=== PATIENT | female | born 1950 | race American Indian/Alaskan Native ===

== ENCOUNTER 2016-10-10 21:02 | Observation (INO) | payer SELFPAY ==
[2016-10-10 21:26] LABS: Hematocrit 35.2 % (30.3-42.9); Hemoglobin 11.8 gm/dl (10.1-14.3); Mean Corpuscular HGB Conc 33 % (30-34); Mean Corpuscular Hemoglobin 31 pg (28-32); Mean Corpuscular Volume 94 fl (79-97); Platelet Count 191 K/mm3 (140-440); Red Blood Count 3.74 M/mm3 (3.65-5.03); Red Cell Distribution Width 13.5 % (13.2-15.2); White Blood Count 10.3 K/mm3 (4.5-11.0)
[2016-10-10 22:33] LABS: Blastocytes % (Manual) 0 %
[2016-10-10 22:34] LABS: Basophils % (Manual) 0 % (0.0-1.8); Eosinophils % (Manual) 0 % (0.0-4.3)
[2016-10-10 22:35] LABS: Anisocytosis 1+
[2016-10-10 22:36] LABS: Diff Status Complete; Platelet Estimate Consistent w Auto
[2016-10-10 22:59] LABS: Anion Gap 22 mmol/L; BUN/Creatinine Ratio 17.14; Blood Urea Nitrogen 12 mg/dL (7-17); Calcium 9.4 mg/dL (8.4-10.2); Carbon Dioxide 22 mmol/L (22-30); Chloride 103.5 mmol/L (98-107); Glucose 114 mg/dL (65-100); Potassium 3.4 mmol/L (3.6-5.0); Sodium 144 mmol/L (137-145)
--- NOTE | 2016-10-10 23:34 | Emergency Department Report ---
ED Chest Pain HPI - General Chief Complaint: Chest Pain Stated Complaint: CHEST PAIN Time Seen by Provider: 10/10/16 23:29 Source: patient, EMS Mode of arrival: Stretcher Limitations: No Limitations - History of Present Illness Initial Comments: Patient is a 66-year-old female with history of hypertension presenting today because of left-sided chest pain. Patient states that the pain started about one week ago she describes it as a left-sided chest discomfort associated with palpitations, shortness of breath, nausea without vomiting and diaphoresis. Patient states that she normally takes her blood pressure medication but ran out about 2 weeks ago and has not had it refilled. She is a tobacco smoker. She's never had a cardiac workup with no prior stress test or cardiac catheterization. According to triage patient did have a heart rate of 140 initially and a BP of 200/60 with EMS, although no clear documentation of atrial fibrillation or atrial flutter here, her nurse and the patient was in atrial fibrillation with EMS. Severity scale (0 -10): 2 - Related Data Previous Rx's Medication Instructions Recorded Last Taken Type Aspirin EC [Aspirin Enteric Coated 325 mg PO QDAY #30 tablet 10/12/16 Unknown Rx TAB] Pantoprazole [Protonix] 40 mg PO QDAY #30 tablet 10/12/16 Unknown Rx oxyCODONE /ACETAMINOPHEN [Percocet 1 tab PO Q6H PRN #15 tablet 10/12/16 Unknown Rx 5/325 mg] Allergies Allergy/AdvReac Type Severity Reaction Status Date / Time No Known Allergies Allergy Verified 10/10/16 21:11 BRETT score - Brett Score Age > 65: (0) No Aspirin use within the Past 7 Days: (0) No 3 or more CAD Risk Factors: (1) Yes 2 or more Angina events in past 24 hrs: (1) Yes Known CAD with more than 50% Stenosis: (0) No Elevated Cardiac Markers: (0) No ST Deviation Greater than 0.5mm: (0) No BRETT Score: 2 ED Review of Systems ROS: Stated complaint: CHEST PAIN Other details as noted in HPI Comment: All other systems reviewed and negative Constitutional: denies: chills, fever Eyes: denies: eye pain ENT: denies: throat pain Respiratory: denies: cough Cardiovascular: chest pain, palpitations Gastrointestinal: nausea. denies: abdominal pain Genitourinary: denies: urgency, dysuria Skin: denies: rash Psychiatric: denies: anxiety ED Past Medical Hx - Past Medical History Previous Medical History?: Yes Hx Hypertension: Yes Additional medical history: afib - Surgical History Hx Cholecystectomy: Yes - Social History Smoking Status: Never Smoker Substance Use Type: None - Medications Home Medications: Home Medications Medication Instructions Recorded Confirmed Last Taken Type Aspirin EC [Aspirin Enteric Coated 325 mg PO QDAY #30 tablet 10/12/16 Unknown Rx TAB] Pantoprazole [Protonix] 40 mg PO QDAY #30 tablet 10/12/16 Unknown Rx oxyCODONE /ACETAMINOPHEN [Percocet 1 tab PO Q6H PRN #15 tablet 10/12/16 Unknown Rx 5/325 mg] ED Physical Exam - General Limitations: No Limitations General appearance: alert, in no apparent distress - Respiratory Respiratory exam: Present: normal lung sounds bilaterally. Absent: respiratory distress - Cardiovascular Cardiovascular Exam: Present: regular rate, normal rhythm - GI/Abdominal GI/Abdominal exam: Present: soft. Absent: distended, tenderness, guarding - Back Exam Back exam: Present: normal inspection - Neurological Exam Neurological exam: Present: alert, oriented X3. Absent: motor sensory deficit - Psychiatric Psychiatric exam: Present: normal affect - Skin Skin exam: Present: intact ED Course Vital Signs 10/10/16 10/10/16 10/11/16 21:07 22:25 08:00 Temperature 98.7 F 98.5 F Pulse Rate 87 84 69 Pulse Rate [ From Monitor] Respiratory 18 16 15 Rate Blood Pressure 145/79 Blood Pressure 144/70 154/67 [Left] O2 Sat by Pulse 97 99 Oximetry 10/11/16 10/11/16 10/11/16 09:00 11:00 13:33 Temperature Pulse Rate 60 65 62 Pulse Rate [ 62 From Monitor] Respiratory 14 16 16 Rate Blood Pressure Blood Pressure 141/66 138/64 140/64 [Left] O2 Sat by Pulse 99 100 100 Oximetry ED Medical Decision Making - Lab Data Result diagrams: 10/10/16 21:16 10/10/16 21:16 - Medical Decision Making IV, labs, ekg, cxr EKG shows normal sinus rhythm at a rate of 88, no ST-T changes, normal axis Chest x-ray unremarkable, troponin negative, admitted for rule out ACS Critical care attestation.: If time is entered above; I have spent that time in minutes in the direct care of this critically ill patient, excluding procedure time. ED Disposition Clinical Impression: Chest pain Qualifiers: Chest pain type: unspecified Qualified Code(s): R07.9 - Chest pain, unspecified Disposition: OP ADMITTED IP TO THIS HOSP Is pt being admited?: Yes Does the pt Need Aspirin: No Condition: Stable
[2016-10-10] MEDS ORDERED: ZOFRAN IV ONE (23:46)
[2016-10-11] MEDS ORDERED: ZOFRAN ONE (05:35)
--- NOTE | 2016-10-11 07:33 | Admit Criteria Form ---
<JEIMY DAY - Last Filed: 10/11/16 08:01> Admission Criteria Documentation: CARDIOLOGY GRG Clinical Indications for Admission to Inpatient Care ( Place 'X' for any and all applicable criteria): Hospital admission is needed for appropriate care of the patient because of ANY ONE of the following (1): [ ] I. Hemodynamic instability as indicated by ALL of the following (1)(2)(3) (4)(5) [ ]a) Vital signs or other findings not as expected for chronic patient condition or baseline [ ]b) Instability indicated by ANY ONE of the following: [ ]i) Hypotension [ ]ii) Symptomatic Tachycardia unresponsive to treatment ( e.g., analgesia, fluids, sedation as indicated) [ ]iii) Inadequate perfusion indicated by ANY ONE of the following: [ ] 1) Lactic acidosis (> 2 mmol/L) [ ] 2) New abnormal capillary refill (> 3 seconds) [ ] 3) Reduced urine output [ ] 4) New altered mental status [ ]iv) Orthostatic vital sign changes unresponsive to treatment (e.g., fluids) [ ]v) IV inotropic or vasopressor medication required to maintain adequate blood pressure or perfusion [ ] II. Severe heart failure as indicated by ANY ONE of the following(17)(18) [ ]a) Respiratory distress [ ]b) Hypotension [ ]c) Anasarca (refractory to outpatient therapy) [ ]d) Cardiac arrhythmias of immediate concern [ ]e) Myocardial ischemia [ ] III. Cardiac arrhythmias or findings of immediate concern indicated by ANY ONE of the following (19)(20): [ ] a) Heart rhythms that are inherently dangerous or unstable indicated by ANY ONE of the following (21)(22)(23): [ ] i) Resuscitated ventricular fibrillation or cardiac arrest [ ] ii) Ventricular escape rhythm [ ] iii) Sustained ventricular tachycardia (30 seconds or more of ventricular rhythm at greater than 100 beats per minute) [ ] iv) Nonsustained ventricular tachycardia and ANY ONE of the following: [ ] 1) Suspected cardiac ischemia as cause or consequence of ventricular tachycardia [ ] 2) In setting of acute myocarditis [ ] b) Unstable cardiac conduction defects indicated by ANY ONE of the following(23)(24)(25) [ ] i) Type II second-degree atrioventricular block [ ]ii) Third-degree atrioventricular block [ ]iii) New-onset left bundle branch block with suspected myocardial ischemia [ ]c) Any heart rhythm and ANY ONE of the following (21)(22)(26)(27) (28) [ ] i) Continuous long-term ECG monitoring needed (e.g., initiation of drug requiring monitoring for more than 24 hours) [ ] ii) Patient has automatic implanted cardioverter defibrillator that is repeatedly firing, malfunctioning, or in need of immediate adjustment of settings beyond the scope of ambulatory or observation care [ ]d) Heart rhythms of concern due to ANY ONE of the following: [ ] i) Hypotension [ ] ii) Respiratory distress [ ] iii) Association with other significant symptoms (e.g., bradycardia with syncope or ongoing dizziness, supraventricular tachycardia with chest pain (14)(15)(17) [ ] IV. Monitoring for cardiac contusion beyond the scope of observation care needed [A](30)(31)(32) [ ] V. Surgical or device complication (e.g., valve replacement complication , pacemaker dysfunction) (35)(41)(44)(45)(46) [ ] . Inpatient palliative care needed. [B](49) Also use Inpatient Palliative Care Criteria [ ] VII. Nonbacterial thrombotic (marantic) endocarditis (36)(43)(47)(48) [X ] VIII. Cardiology condition, symptom, or finding for which emergency and observation care has failed or are not considered appropriate. [ ] IX. Acute valvular disease requiring inpatient as indicated by ANY ONE of the following (41) [ ]a) Acute valvular regurgitation (42) [ ]b) Noninfectious valvulitis (43) [ ]c) Obstructive valve thrombosis [ ]d) Paravalvular leak [ ]e) Other significant valvular disorder remaining after emergency or observation level of care (as appropriate) [ ]X. Pericardial disease requiring inpatient treatment as indicated by ANY ONE of the following (33)(34)(35)(36)(37) [ ]a) Suspected tamponade (38)(39)(40) [ ]b) Hemopericardium [ ]c) Other significant pericardial disorder remaining after emergency or observation level of care (as appropriate) [ ] XI. Cardiac ischemia beyond scope of emergency and observation care. [ ] XII. Hypertension requiring inpatient treatment as indicated by ANY ONE of the following (6)(7)(8) [ ]a) SBP greater than 220 mm Hg or DBP greater than 120 mmHg despite treatment [ ]b) SBP greater than 140 mm Hg or DBP greater than 100 mm Hg with evidence of acute end organ damage as indicated by ANY ONE of the following [ ] i) Altered mental status [ ] ii) Acute renal failure as indicated by new onset of ANY ONE of the following (9)(10)(11)(12)(13) [ ]1) 3-fold rise in serum creatinine from baseline [ ]2) Serum creatinine greater than 4 mg/dL ( 354 micromoles/L) with acute rise greater than 0.5 mg/dL (44.2 micromoles/L) [ ]3) Reduction of more than 75% in estimated glomerular filtration rate from baseline [ ]4) Estimated glomerular filtration rate less than 35 mL/min/1.73m2 (0.59 mL/sec/1.73m2) in child up to 18 years of age [ ]5) Cessation of urine output indicated by ALL of the following [ ]A. Adequate volume status [ ]B. Inadequate urine output as indicated by ANY ONE of the following [ ]a. Urine output less than 0.3 mL/kg/hr for 24 hours [ ]b. Anuria (urine output less than 0.1 mL/kg/hr) for 12 hours [ ] iii) Aortic dissection [ ] iv) Myocardial Ischemia [ ] v) Left ventricular heart failure [ ]vi) Retinal Hemorrhage [ ]vii) Other significant finding [ ]c) Hypertension in child requiring inpatient treatment as indicated by ALL of the following(14)(15)(16) [ ] i) Outpatient treatment not effective, not available, or not appropriate [ ]ii) SBP or DBP greater than 95th percentile for age [ ]iii) Evidence of acute end organ damage as indicated by ANY ONE of the following [ ]1) Altered mental status [ ]2) Acute renal failure as indicated by new onset of ANY ONE of the following(9)(10)(11)(12)(13) [ ]A. 3-fold rise in serum creatinine from baseline [ ]B. Serum creatinine greater than 4 mg/dL (354 micromoles/L) with acute rise greater than 0.5 mg/dL (44.2 micromoles/L) [ ]C. Reduction of more than 75% in estimated glomerular filtration rate from baseline [ ]D. Estimated glomerular filtration rate less than 35 mL/min/1.73m2 (0.59 mL/sec/1.73m2) in child up to 18 years of age [ ]E. Cessation of urine output indicated by ALL of the following [ ]a. Adequate volume status [ ]b. Inadequate urine output as indicated by ANY ONE of the following [ ]i) Urine output less than 0.3 mL/kg/hr for 24 hours [ ]ii) Anuria ( urine output less than 0.1 mL/kg/hr) for 12 hours [ ]3) Severe headache [ ]4) Visual disturbance [ ]5) Retinal hemorrhage [ ]6) Other significant finding [ ]XIII. Complications of transplanted heart indicated by ANY ONE of the following(61): [ ]a) Acute graft rejection requiring inpatient management (eg, intravenous immunosuppression)(62)(63) [ ]b) Acute graft heart failure indicated by ANY ONE of the following(64): [ ]i) Hemodynamic instability [ ]ii) Cardiac arrhythmias of immediate concern [ ]iii) Pulmonary edema that is very severe (eg, mechanical ventilation needed, imminent or likely, need for 100% oxygen to keep oxygen saturation above 90%) [ ]iv) Pulmonary edema that is persistent as indicated by ALL of the following: [ ]1) New need for oxygen therapy to keep oxygen saturation above 90% (or increased FiO2 need from baseline) [ ]2) Has not improved sufficiently with emergency department or observation care IV diuretics or other heart failure treatments[E] [ ]v) Altered mental status that is severe or persistent [ ]vi) Increased creatinine (new on laboratory test) with reduction of more than 50% in estimated glomerular filtration rate from baseline [ ]vii) Progressively (ongoing) rising creatinine (known from past laboratory test) with reduction of more than 25% in estimated glomerular filtration rate from baseline [ ]viii) Acute renal failure [ ]ix) Acute peripheral ischemia (eg, examination shows pulseless, cool, mottled, or cyanotic extremity) [ ]x) Pulmonary artery catheter monitoring needed [ ]xi) Other sign or symptom of heart failure requiring inpatient treatment (ie, too severe or not responsive to outpatient and observation care treatment) [ ]c) Infection requiring inpatient management (eg, Hemodynamic instability, need for intravenous antimicrobial treatment)(66)(67)(68)(69)(70) [ ]d) Cardiac allograft vasculopathy requiring inpatient management ( eg evidence of cardiac ischemia)(71) [ ]e) Other complication of transplanted heart (eg, stroke, severe pulmonary hypertension, severe valvular dysfunction) requiring inpatient management(72) The original [facility] [employer] content created by [facility] has been revised. The portions of the content which have been revised are identified through the use of italic text or in bold, and [facility] has neither reviewed nor approved the modified material. All other unmodified content is copyright [facility]. Please see references footnoted in the original [facility] edition 2016 Admission Criteria Met: Yes <DAGMAR JENKINS M - Last Filed: 10/12/16 11:09> Admission Criteria Met: Yes (Chest pain with progressive symptoms, concerned for unstable angina)
--- NOTE | 2016-10-11 10:00 | XRay Report ---
CHEST ONE VIEW INDICATION: Chest pain. COMPARISON: None similar at this institution. FINDINGS: Portable, single, frontal chest radiograph demonstrates normal cardiomediastinal silhouette. Clear lungs. Unremarkable bones. Extrinsic EKG leads. CONCLUSION: No acute disease in the chest. Thank you for the opportunity to participate in this patient's care.
[2016-10-11] MEDS ORDERED: MORPHINE IV PRN (10:30)
[2016-10-11] MEDS ORDERED: ZOFRAN IV PRN (10:30)
[2016-10-11] MEDS ORDERED: DULCOLAX PR PRN (10:30)
[2016-10-11] MEDS ORDERED: TYLENOL PO PRN (10:30)
[2016-10-11] MEDS ORDERED: MILK OF MAGNESIA PO PRN (10:30)
[2016-10-11] MEDS ORDERED: PERCOCET 5/325 PO PRN (10:30)
[2016-10-11] MEDS ORDERED: SODIUM CHLORIDE FLUSH SYRINGE 10 ML IV PRN (10:30)
[2016-10-11] MEDS ORDERED: APRESOLINE IV PRN (10:34)
[2016-10-11] MEDS ORDERED: K-DUR PO ONE (12:00)
--- NOTE | 2016-10-11 15:07 | Consultation ---
History of Present Illness Consult date: 10/11/16 Consult reason: arrhythmia, chest pain History of present illness: This is a 66yr old woman who presents to the ED with complaints of chest pain. There is no prior cardiac history or workup. Patient reports chest pain underneath her left breast. She associates pain with palpitations and shortness of breath. Patient was admitted and is planned for a thallium stress test per primary team. A cardiac consultation is requested for questionable atrial flutter. Several ECGs done by EMS shows a sinus rhythm. An ECG done in the ED show a sinus rhythm. No evidence of arrhythmia noted. Past History Past Medical History: hypertension Medications and Allergies Allergies Allergy/AdvReac Type Severity Reaction Status Date / Time No Known Allergies Allergy Verified 10/10/16 21:11 Home Medications Medication Instructions Recorded Confirmed Last Taken Type No Known Home Medications [No 10/10/16 10/10/16 Unknown History Reported Home Medications] Active Meds: Active Medications Acetaminophen (Tylenol) 650 mg PO Q4H PRN PRN Reason: Pain MILD(1-3)/Fever >100.5/GANT Aspirin (Ecotrin) 325 mg PO QDAY JANEE Bisacodyl (Dulcolax) 10 mg ID QDAY PRN PRN Reason: Constipation unrelieved by MOM Enoxaparin Sodium (Lovenox) 40 mg SUB-Q QDAY JANEE Hydralazine HCl (Apresoline) 10 mg IV Q4HR PRN PRN Reason: BP >160/100 Influenza Virus Vaccine Quadrival (Fluarix Quad [id number](36 Mos+)) 60 mcg IM .ONCE ONE Stop: 10/12/16 12:01 Magnesium Hydroxide (Milk Of Magnesia) 30 ml PO Q4H PRN PRN Reason: Constipation Morphine Sulfate (Morphine) 2 mg IV Q4H PRN PRN Reason: Pain, Moderate (4-6) Ondansetron HCl (Zofran) 4 mg IV Q8H PRN PRN Reason: N/V unrelieved by Reglan Oxycodone/Acetaminophen (Percocet 5/325) 1 tab PO Q6H PRN PRN Reason: Pain, Moderate (4-6) Sodium Chloride (Sodium Chloride Flush Syringe 10 Ml) 10 ml IV PRN PRN PRN Reason: LINE FLUSH Physical Examination Vital Signs Temp Pulse Resp BP 98.7 F 87 18 145/79 10/10/16 21:07 10/10/16 21:07 10/10/16 21:07 10/10/16 21:07 General appearance: no acute distress HEENT: Positive: PERRL Neck: Positive: trachea midline Cardiac: Positive: Reg Rate and Rhythm Results 10/10/16 21:16 10/10/16 21:16 Assessment and Plan Chest pain, atypical Hypertension Several ECG reviewed; No evidence of atrial flutter seen. Patient is planned for thallium stress test tomorrow morning. Agree with primary team. Continue remote telemetry monitoring.
--- NOTE | 2016-10-11 16:54 | History and Physical Report ---
History of Present Illness Date of admission: 10/11/16 10:30 Chief complaint: Chest pain History of present illness: 66-year-old womanwith significant past medical history except for mild hypertension, she presents with chest pain as been ongoing now for about 2 weeks. She knows that the penis, has been progressively been getting worse, she described it as 6 out of 10-8 out of 10 dull pain under her left breast, whenever she has the pain is associated with shortness of breath. Those associated with appetite loss. The longest episode the pain lasted 30 minutes. Chest pain has now resolved. She denies any previous cardiac testing. Past History Past Medical History: hypertension Past Surgical History: cholecystectomy Social history: no significant social history Family history: no significant family history Medications and Allergies Allergies Allergy/AdvReac Type Severity Reaction Status Date / Time No Known Allergies Allergy Verified 10/10/16 21:11 Home Medications Medication Instructions Recorded Confirmed Last Taken Type RX: No Known Home Medications [No 10/10/16 10/10/16 Unknown History Reported Home Medications] Active Meds: Active Medications Acetaminophen (Tylenol) 650 mg PO Q4H PRN PRN Reason: Pain MILD(1-3)/Fever >100.5/GANT Aspirin (Ecotrin) 325 mg PO QDAY JANEE Bisacodyl (Dulcolax) [address] QDAY PRN PRN Reason: Constipation unrelieved by MOM Enoxaparin Sodium (Lovenox) 40 mg SUB-Q QDAY JANEE Hydralazine HCl (Apresoline) 10 mg IV Q4HR PRN PRN Reason: BP >160/100 Influenza Virus Vaccine Quadrival (Fluarix Quad [id number](36 Mos+)) 60 mcg IM .ONCE ONE Stop: 10/12/16 12:01 Magnesium Hydroxide (Milk Of Magnesia) 30 ml PO Q4H PRN PRN Reason: Constipation Morphine Sulfate (Morphine) 2 mg IV Q4H PRN PRN Reason: Pain, Moderate (4-6) Last Admin: 10/11/16 16:12 Dose: 2 mg Ondansetron HCl (Zofran) 4 mg IV Q8H PRN PRN Reason: N/V unrelieved by Reglan Oxycodone/Acetaminophen (Percocet 5/325) 1 tab PO Q6H PRN PRN Reason: Pain, Moderate (4-6) Sodium Chloride (Sodium Chloride Flush Syringe 10 Ml) 10 ml IV PRN PRN PRN Reason: LINE FLUSH Review of Systems All systems: negative Constitutional: anorexia Exam - Constitutional Vitals: Temp Pulse Resp BP Pulse Ox 98.5 F 62 16 140/64 100 10/11/16 08:00 10/11/16 13:33 10/11/16 13:33 10/11/16 13:33 10/11/16 13:33 General appearance: Present: no acute distress, well-nourished - EENT Eyes: Present: PERRL ENT: hearing intact, clear oral mucosa - Neck Neck: Present: supple, normal ROM - Respiratory Respiratory effort: normal Respiratory: bilateral: CTA - Cardiovascular Heart Sounds: Present: S1 & S2. Absent: rub, click - Extremities Extremities: pulses symmetrical, No edema Peripheral Pulses: within normal limits - Abdominal General gastrointestinal: Present: soft, non-tender, non-distended, normal bowel sounds Female genitourinary: Present: normal - Integumentary Integumentary: Present: clear, warm, dry - Musculoskeletal Musculoskeletal: gait normal, strength equal bilaterally - Psychiatric Psychiatric: appropriate mood/affect, intact judgment & insight - Neurologic Neurologic: CNII-XII intact, moves all extremities Results - Labs CBC & Chem 7: 10/10/16 21:16 10/10/16 21:16 Labs: Laboratory Last Values WBC 10.3 K/mm3 (4.5-11.0) 10/10/16 21:16 RBC 3.74 M/mm3 (3.65-5.03) 10/10/16 21:16 Hgb 11.8 gm/dl (10.1-14.3) 10/10/16 21:16 Hct 35.2 % (30.3-42.9) 10/10/16 21:16 MCV 94 fl (79-97) 10/10/16 21:16 MCH 31 pg (28-32) 10/10/16 21:16 MCHC 33 % (30-34) 10/10/16 21:16 RDW 13.5 % (13.2-15.2) 10/10/16 21:16 Plt Count 191 K/mm3 (140-440) 10/10/16 21:16 Lymph # Electronic Plotting System Operator 10/10/16 21:16 Add Manual Diff Complete 10/10/16 21:16 Total Counted 100 10/10/16 21:16 Seg Neuts % (Manual) 46.0 % (40.0-70.0) 10/10/16 21:16 Band Neutrophils % 0 % 10/10/16 21:16 Lymphocytes % (Manual) 45.0 % (13.4-35.0) H 10/10/16 21:16 Reactive Lymphs % (Man) 0 % 10/10/16 21:16 Monocytes % (Manual) 9.0 % (0.0-7.3) H 10/10/16 21:16 Eosinophils % (Manual) 0 % (0.0-4.3) 10/10/16 21:16 Basophils % (Manual) 0 % (0.0-1.8) 10/10/16 21:16 Metamyelocytes % 0 % 10/10/16 21:16 Myelocytes % 0 % 10/10/16 21:16 Promyelocytes % 0 % 10/10/16 21:16 Blast Cells % 0 % 10/10/16 21:16 Nucleated RBC % Not Reportable 10/10/16 21:16 Seg Neutrophils # Man 4.7 K/mm3 (1.8-7.7) 10/10/16 21:16 Band Neutrophils # 0.0 K/mm3 10/10/16 21:16 Lymphocytes # (Manual) 4.6 K/mm3 (1.2-5.4) 10/10/16 21:16 Abs React Lymphs (Man) 0.0 K/mm3 10/10/16 21:16 Monocytes # (Manual) 0.9 K/mm3 (0.0-0.8) H 10/10/16 21:16 Eosinophils # (Manual) 0.0 K/mm3 (0.0-0.4) 10/10/16 21:16 Basophils # (Manual) 0.0 K/mm3 (0.0-0.1) 10/10/16 21:16 Metamyelocytes # 0.0 K/mm3 10/10/16 21:16 Myelocytes # 0.0 K/mm3 10/10/16 21:16 Promyelocytes # 0.0 K/mm3 10/10/16 21:16 Blast Cells # 0.0 K/mm3 10/10/16 21:16 WBC Morphology Not Reportable 10/10/16 21:16 Hypersegmented Neuts Not Reportable 10/10/16 21:16 Hyposegmented Neuts Not Reportable 10/10/16 21:16 Hypogranular Neuts Not Reportable 10/10/16 21:16 Smudge Cells Not Reportable 10/10/16 21:16 Toxic Granulation Not Reportable 10/10/16 21:16 Toxic Vacuolation Not Reportable 10/10/16 21:16 Dohle Bodies Not Reportable 10/10/16 21:16 Pelger-Huet Anomaly Not Reportable 10/10/16 21:16 Joy Rods Not Reportable 10/10/16 21:16 Platelet Estimate Consistent w auto 10/10/16 21:16 Clumped Platelets Not Reportable 10/10/16 21:16 Plt Clumps, EDTA Not Reportable 10/10/16 21:16 Large Platelets Not Reportable 10/10/16 21:16 Giant Platelets Not Reportable 10/10/16 21:16 Platelet Satelliting Not Reportable 10/10/16 21:16 Plt Morphology Comment Not Reportable 10/10/16 21:16 RBC Morphology Not Reportable 10/10/16 21:16 Dimorphic RBCs Not Reportable 10/10/16 21:16 Polychromasia Not Reportable 10/10/16 21:16 Hypochromasia Not Reportable 10/10/16 21:16 Poikilocytosis Not Reportable 10/10/16 21:16 Anisocytosis 1+ 10/10/16 21:16 Microcytosis Not Reportable 10/10/16 21:16 Macrocytosis Not Reportable 10/10/16 21:16 Spherocytes Not Reportable 10/10/16 21:16 Pappenheimer Bodies Not Reportable 10/10/16 21:16 Sickle Cells Not Reportable 10/10/16 21:16 Target Cells Not Reportable 10/10/16 21:16 Tear Drop Cells Not Reportable 10/10/16 21:16 Ovalocytes Not Reportable 10/10/16 21:16 Helmet Cells Not Reportable 10/10/16 21:16 [place] Bodies Not Reportable 10/10/16 21:16 [place] Rings Not Reportable 10/10/16 21:16 [place] Cells Not Reportable 10/10/16 21:16 Bite Cells Not Reportable 10/10/16 21:16 Crenated Cell Not Reportable 10/10/16 21:16 Elliptocytes Not Reportable 10/10/16 21:16 Acanthocytes (Spur) Not Reportable 10/10/16 21:16 Rouleaux Not Reportable 10/10/16 21:16 Hemoglobin C Crystals Not Reportable 10/10/16 21:16 Schistocytes Not Reportable 10/10/16 21:16 Malaria parasites Not Reportable 10/10/16 21:16 Mj Bodies Not Reportable 10/10/16 21:16 Hem Pathologist Commnt No 10/10/16 21:16 Sodium 144 mmol/L (137-145) 10/10/16 21:16 Potassium 3.4 mmol/L (3.6-5.0) L 10/10/16 21:16 Chloride 103.5 mmol/L (98-107) 10/10/16 21:16 Carbon Dioxide 22 mmol/L (22-30) 10/10/16 21:16 Anion Gap 22 mmol/L 10/10/16 21:16 BUN 12 mg/dL (7-17) 10/10/16 21:16 Creatinine 0.7 mg/dL (0.7-1.2) 10/10/16 21:16 Estimated GFR > 60 ml/min 10/10/16 21:16 BUN/Creatinine Ratio 17.14 % 10/10/16 21:16 Glucose 114 mg/dL (65-100) H 10/10/16 21:16 Calcium 9.4 mg/dL (8.4-10.2) 10/10/16 21:16 Troponin T < 0.010 ng/mL (0.00-0.029) 10/11/16 16:03 - Imaging and Cardiology Chest x-ray: image reviewed (no acute process seen) Assessment and Plan Assessment and plan: 66-year-old past medical history hypertension who presents with chest pain and 1. Chest pain ACS to be be ruled out by serial troponins, chest x-ray negative Cardiology consult, if the stress test in the a.m. A. fib was mentioned in the chart, however after reviewing EKG, it appears to be sinus rhythm. EKG done by EMS is read by the computer as A. fib, but after reviewing it by myself I see P waves, regular rate, appears to be movements artifacts 2. Hypertension Not on medications, continue lifestyle modification 3. Hypokalemia Has been repleted DVT prophylaxis Lovenox Plan of care discussed with patient/family: Yes
[2016-10-12] MEDS ORDERED: LOVENOX SUB-Q SCH (10:00)
[2016-10-12] MEDS ORDERED: ECOTRIN PO SCH (10:00)
[2016-10-12] MEDS ORDERED: LEXISCAN IV ONE ×2 (10:24→10:26)
--- NOTE | 2016-10-12 10:43 | Discharge Summary ---
Providers - Providers Date of Admission: 10/11/16 10:30 Date of discharge: 10/12/16 Attending physician: ALEXANDR NG 10/11/16 12:06 Consult to Physician [CONS] Routine Consulting Provider: ELISABETH BARRETT Reason For Exam: ?a flutter Place consult to:: [facility] Notified:: y Was contact made?: Yes If yes, spoke with:: ortiz Time called:: 13:10 Primary care physician: CLINICAL NURSE OCCUPATIONAL MEDICINE Hospitalization Reason for admission: cp Condition: Stable Hospital course: 66-year-old woman with significant past medical history for mild hypertension who presented with chest pain that was ongoing for about 2 weeks prior to admission. She reports that the pain had been progressively getting worse described as 6 out of 10 under her left breast. The pain was also associated with shortness of breath. The longest episode of the pain lasted 30 minutes. Chest pain has now resolved. She denies any previous cardiac testing. Patient was placed on the chest pain pathway and underwent a stress thallium which was found to be negative. Cardiac isoenzymes were negative and EKG showed no acute findings. Chest pain is likely related to GERD. Patient is felt to have received maximal hospital benefit. Patient will be discharged home. Dedicated discharge time 35 minutes. Disposition: DISCHARGED TO HOME OR SELFCARE Time spent for discharge: 35 - Discharge Diagnoses (1) GERD (gastroesophageal reflux disease) Status: Acute Qualifiers: Esophagitis presence: E (2) Chest pain Status: Acute Qualifiers: Chest pain type: C Ischemic chest pain type: I (3) Afib Status: Acute Qualifiers: Atrial fibrillation type: A (4) Hypokalemia Status: Acute Core Measure Documentation - Palliative Care Palliative Care/ Comfort Measures: Not Applicable - Core Measures Any of the following diagnoses?: none Exam - Constitutional Vitals: Temp Pulse Resp BP Pulse Ox 98 F 64 12 146/69 99 10/12/16 10:25 10/12/16 05:47 10/12/16 10:25 10/12/16 10:25 10/12/16 10:25 General appearance: Present: no acute distress, well-nourished - EENT Eyes: Present: PERRL ENT: hearing intact, clear oral mucosa - Neck Neck: Present: supple, normal ROM - Respiratory Respiratory effort: normal Respiratory: bilateral: CTA - Cardiovascular Heart Sounds: Present: S1 & S2. Absent: rub, click - Extremities Extremities: pulses symmetrical, No edema Peripheral Pulses: within normal limits - Abdominal General gastrointestinal: Present: soft, non-tender, non-distended, normal bowel sounds Female genitourinary: Present: normal - Integumentary Integumentary: Present: clear, warm, dry - Musculoskeletal Musculoskeletal: gait normal, strength equal bilaterally - Psychiatric Psychiatric: appropriate mood/affect, intact judgment & insight - Neurologic Neurologic: CNII-XII intact, moves all extremities Plan Activity: no restrictions Weight Bearing Status: Full Weight Bearing Follow up with: PRIMARY CARE, [Primary Care Provider] - 3-5 Days Prescriptions: Aspirin EC [Aspirin Enteric Coated TAB] 325 mg PO QDAY #30 tablet oxyCODONE /ACETAMINOPHEN [Percocet 5/325 mg] 1 tab PO Q6H PRN #15 tablet PRN Reason: Pain, Moderate (4-6) Pantoprazole [Protonix] 40 mg PO QDAY #30 tablet
[2016-10-12] MEDS ORDERED: FLUARIX QUAD 2016-2017(36 MOS+) IM ONE (12:00)
--- NOTE | 2016-10-12 15:18 | Event Note ---
Date: 10/12/16 The patient's Persantin thallium stress test today was normal perfusion and normal left ventricle systolic function.
[2016-10-12 15:27] VITALS: BP 167/72
--- NOTE | 2016-10-13 01:37 | Treadmill Report ---
THALLIUM STRESS TEST LEFT VENTRICLE: Left ventricular chamber size is within normal spread. Perfusion study demonstrates homogeneous uptake of the tracer in all segments, no significant defects identified. Gated analysis demonstrates normal left ventricular systolic function, ejection fraction 74%. CONCLUSION: Normal myocardial perfusion study. JOB# [id number] CA/NTS
== END 2016-10-12 16:39 | disposition home or self-care (01) ==
LOC: ED 21:02 → 4A 10-11 10:30
PROVIDERS: ADMIT Internal Medicine; ATTEND Hospitalist
DX: R07.89 Other chest pain (principal); E87.6 Hypokalemia; R06.02 Shortness of breath; I49.9 Cardiac arrhythmia, unspecified; I10 Essential (primary) hypertension; K21.9 Gastro-esophageal reflux disease without esophagitis; I48.91 Unspecified atrial fibrillation; Z90.49 Acquired absence of other specified parts of digestive tract
CPT/HCPCS: 36415; 71010; 78452; 80048; 80061; 84484; 85007; 85025; 90471; 90686; 93005; 93010; 93017; 96374; 96375; 99285; 99406; A9502; G0378; J2270; J2405; J2785